=== PATIENT | male | born 1965 | race Caucasian/White ===

== ENCOUNTER → 2021-01-12 | Outpatient (CLI) | payer OTHER | LOC: CT 14:21 | DX: K86.89 Other specified diseases of pancreas (principal); R91.8 Other nonspecific abnormal finding of lung field | CPT/HCPCS: 36415; 82565; Q9967 ==

== ENCOUNTER → 2021-02-16 | Outpatient (CLI) | payer OTHER, SELFPAY | LOC: CT 15:17 | DX: R04.2 Hemoptysis (principal); R91.8 Other nonspecific abnormal finding of lung field | CPT/HCPCS: 36415; 71260; 82565; Q9967 ==